=== PATIENT | male | born 1980 | race Caucasian/White ===

== ENCOUNTER 2017-11-08 18:33 | Emergency (ER) | payer SELFPAY ==
[2017-11-08 18:53] VITALS: BP 115/82
[2017-11-08] MEDS ORDERED: Cyclobenzaprine TAB* 10 MG PO ONE (19:46)
[2017-11-08] MEDS ORDERED: Ibuprofen TAB* 400 MG PO ONE (19:46)
--- NOTE | 2017-11-08 20:26 | RAD ---
INDICATION: Left lateral rib pain for days after falling off a roof COMPARISON: None. TECHNIQUE: 4 views of the left ribs were obtained. FINDINGS: There is a nondisplaced fracture at the lateral left ninth rib. There is no left-sided pneumothorax. IMPRESSION: Nondisplaced fracture of the lateral left ninth rib.
--- NOTE | 2017-11-08 21:31 | ED ---
Cecy Garcia Jade, scribed for Quinn Trejo MD on 11/08/17 at 1953 . Back Pain - HPI Summary HPI Summary: Pt is a 36 y/o male who presents to [facility] s/p fall 4 days ago. He states he fell off the roof 7-10 feet high while at work onto his left side. The fall knocked the wind out of him and caused him to be SOB at the time, but he did not black out. He denies alcohol use at the time of injury. Last night, he heard something pop in his left side while he was stretching. Pt states he cannot get comfortable laying down, and pain is rated 6/10 in intensity. He has been taking Aspirin for the pain. - History of Current Complaint Chief Complaint: UCGeneralIllness Stated Complaint: RIB INJURY Time Seen by Provider: 11/08/17 18:55 Hx Obtained From: Patient Onset/Duration: Sudden Onset, Still Present Onset/Duration: Started Days Ago - 4 days ago Back Pain Location: Is Discrete @ - Left side Severity Currently: Moderate Pain Intensity: 6 Pain Scale Used: 0-10 Numeric Associated Signs And Symptoms: Positive: Bruising - Allergies/Home Medications Allergies/Adverse Reactions: Allergies Allergy/AdvReac Type Severity Reaction Status Date / Time No Known Allergies Allergy Verified 11/08/17 18:53 Home Medications: Home Medications Ibuprofen TAB* [Advil TAB*] 1,000 mg PO Q8HR PRN 11/08/17 [History Confirmed 03/18] PMH/Surg Hx/FS Hx/Imm Hx Endocrine/Hematology History: Denies: Hx Diabetes, Hx Thyroid Disease Cardiovascular History: Denies: Hx Hypertension Respiratory History: Denies: Hx Asthma, Hx Chronic Obstructive Pulmonary Disease (COPD) GI History: Denies: Hx Ulcer Infectious Disease History: No Infectious Disease History: Denies: Hx Clostridium Difficile, Hx Hepatitis, Hx Human Immunodeficiency Virus (HIV), Hx of Known/Suspected MRSA, Hx Shingles, Hx Tuberculosis, Hx Known/ Suspected VRE, Hx Known/Suspected VRSA, History Other Infectious Disease, Traveled Outside the [place] in Last 30 Days - Family History Known Family History: Positive: Cardiac Disease - Social History Alcohol Use: Rare Substance Use Type: Reports: None Smoking Status (MU): Never Smoked Tobacco Review of Systems Negative: Fever Positive: Myalgia - Left side and back pain Positive: Bruising - Left side (ribs) All Other Systems Reviewed And Are Negative: Yes Physical Exam - Summary Physical Exam Summary: Appearance: Well appearing, no pain distress Skin: warm, dry, reflects adequate perfusion. Contusion tricep area of left arm. 3 areas of ecchymosis overlying ribs posterior to axillary line (ribs 9, 10 , and 11), tenderness in this area. Small abrasion lower midline thoracic area. Head/face: normal Eyes: EOMI, MESERET ENT: normal Neck: supple, non-tender Respiratory: CTA, breath sounds present Cardiovascular: RRR, pulses symmetrical Abdomen: non-tender, soft. No LUQ tenderness. Bowel Sounds: present Musculoskeletal: strength/ROM intact. No lumbar, midline, or thoracic muscular tenderness. Shoulder and elbow normal. Neuro: normal, sensory motor intact, A&Ox3 Triage Information Reviewed: Yes Vital Signs On Initial Exam: Initial Vitals Temp Pulse Resp BP Pulse Ox 99.3 F 64 16 115/82 100 11/08/17 18:46 11/08/17 18:46 11/08/17 18:46 11/08/17 18:46 11/08/17 18:46 Vital Signs Reviewed: Yes Diagnostics - Vital Signs Vital Signs Temp Pulse Resp BP Pulse Ox 11/08/17 18:46 99.3 F 64 16 115/82 100 - Laboratory Lab Statement: Any lab studies that have been ordered have been reviewed, and results considered in the medical decision making process. - Radiology XR Xray Interpretation: Positive (See Comments) - Nondisplaced fracture of the lateral left ninth rib. physician reviewed radiology report. Radiology Interpretation Completed By: Radiologist Back Pain Course/Dx - Course Course Of Treatment: X-ray confirms ninth rib fracture. Has areas of ecchymosis in this area. No pneumothorax or upper quadrant abdominal pain. Breathing easily. Treat symptomatically. Follow-up with occupational medicine or [facility]. - Diagnoses Differential Diagnosis/HQI/PQRI: Positive: Other - Pulmonary contusion, rib fracture, rib contusion, intra-abdominal injury, pneumothorax Provider Diagnoses: Fall from roof, Rib fracture, Rib contusion Discharge - Sign-Out/Discharge Documenting (check all that apply): Discharge/Admit/Transfer - Discharge - Discharge Plan Condition: Improved Disposition: HOME Prescriptions: Cyclobenzaprine TAB* [Flexeril 10 MG TAB*] 10 mg PO DAILY PRN #5 tab PRN Reason: muscle pain Metaxalone TAB* [Skelaxin TAB*] 800 mg PO TID PRN #12 tab PRN Reason: muscle pain Naproxen [Naproxen 500 mg tab] 500 mg PO BID PRN #12 tablet.dr PRN Reason: Pain Patient Education Materials: Rib Fracture (ED) Forms: *Work Release Referrals: [facility] [Outside] [facility]ERR[facility] [Outside] Additional Instructions: Follow-up with occupational medicine physician if your company has one. Muscle relaxers can cause drowsiness, do not work or use machinery if you have any drowsiness. Ice to the area, deep breathing exercises every half hour. Return with increased pain, shortness of breath, abdominal pain, worse or other concerns. [facility] clinic and provide follow-up to you in the next day or 2. This is for patient's without a primary care physician. - Billing Disposition and Condition Condition: IMPROVED Disposition: Home The documentation as recorded by the Cecy conner Jade accurately reflects the service I personally performed and the decisions made by me, Quinn Trejo MD.
== END 2017-11-08 20:45 | disposition home or self-care (01) ==
LOC: UCEAST 18:33
DX: S22.32XA Fracture of one rib, left side, initial encounter for closed fracture (principal); S40.022A Contusion of left upper arm, initial encounter; S20.419A Abrasion of unspecified back wall of thorax, initial encounter; W17.89XA Other fall from one level to another, initial encounter; Y93.H3 Activity, building and construction; Y92.9 Unspecified place or not applicable; Y99.0 Civilian activity done for income or pay; Z82.49 Family history of ischemic heart disease and other diseases of the circulatory system
CPT/HCPCS: 99212; A9270-GY; G0463

== ENCOUNTER 2019-04-21 14:50 | Emergency (ER) | payer SELFPAY ==
[2019-04-21 15:09] VITALS: BP 119/80
--- NOTE | 2019-04-21 16:00 | UC ---
Head Injury HPI - HPI Summary HPI Summary: Patient is a 38-year-old male presenting with complaint of possible concussion. States he was working yesterday and lifted some heavy equipment. He states while he had the equipment lifted up in his arms that slipped a little bit and hit him in the forehead right above his left eye. Patient states he did not drop the equipment and continued to work. Denies loss of consciousness. Denies nausea and vomiting. Denies blurry vision. States he went about his day normally and slept well last night. Does note that he was more tired than usual yesterday evening. States since waking up this morning he has noticed a pressure headache on the left side, "feeling of fogginess," photophobia, and fatigue. Continues to deny nausea and vomiting and changes in vision. Patient states he has not taken anything for headache. Denies blood thinners. Denies neck pain. - History Of Current Complaint Chief Complaint: UCHeadInjury Stated Complaint: POSS CONCUSSION Hx Obtained From: Patient Onset/Duration: Gradual Onset Pain Intensity: 0 - Allergies/Home Medications Allergies/Adverse Reactions: Allergies Allergy/AdvReac Type Severity Reaction Status Date / Time No Known Allergies Allergy Verified 04/21/19 15:05 PMH/Surg Hx/FS Hx/Imm Hx Previously Healthy: Yes - Surgical History Surgical History: None - Family History Known Family History: Positive: Cardiac Disease - Social History Occupation: Employed Full-time Lives: With Family Alcohol Use: Occasionally Substance Use Type: None Smoking Status (MU): Never Smoked Tobacco - Immunization History Most Recent Influenza Vaccination: 2014 Most Recent Tetanus Shot: unknown Most Recent Pneumonia Vaccination: never Review of Systems All Other Systems Reviewed And Are Negative: Yes Constitutional: Positive: Negative Skin: Positive: Negative Eyes: Positive: Photophobia. Negative: Blurred Vision, Diplopia Respiratory: Positive: Negative Cardiovascular: Positive: Negative Gastrointestinal: Positive: Negative. Negative: Vomiting, Nausea Musculoskeletal: Positive: Negative Neurological: Positive: Headache. Negative: Weakness, Paresthesia, Numbness Physical Exam Triage Information Reviewed: Yes Appearance: Well-Appearing, No Pain Distress, Well-Nourished Vital Signs: Initial Vital Signs Temp 99.5 F 04/21/19 15:06 Pulse 63 04/21/19 15:06 Resp 18 04/21/19 15:06 BP 119/80 04/21/19 15:06 Pulse Ox 100 04/21/19 15:06 Vital Signs Reviewed: Yes Eyes: Positive: Conjunctiva Clear ENT: Positive: Hearing grossly normal, Pharynx normal, TMs normal. Negative: Nasal drainage Neck exam: Normal Neck: Positive: Supple, Nontender Respiratory Exam: Normal Respiratory: Positive: Lungs clear, Normal breath sounds, No respiratory distress Cardiovascular Exam: Normal Cardiovascular: Positive: RRR Neurological Exam: Normal, Other - cranial nerves II-XII intact Neurological: Positive: Alert, Muscle Tone Normal Psychological: Positive: Age Appropriate Behavior Head Injury Course/Dx - Course Course Of Treatment: Patient VS and PE findings normal. Educated patient on minor head injuries and minor concussions. Instructed to follow up if symptoms persist or to go to ED with new or worsening symptoms. Patient voiced understanding and agreed with treatment plan. - Differential Dx/Diagnosis Provider Diagnosis: Minor head injury without loss of consciousness, Concussion Discharge ED - Sign-Out/Discharge Documenting (check all that apply): Patient Departure All imaging exams completed and their final reports reviewed: No Studies - Discharge Plan Condition: Stable Disposition: HOME Patient Education Materials: Concussion (ED) Referrals: [facility] [Outside] Additional Instructions: As discussed, you have experienced a minor head injury. It is likely you have a minor concussion. Limit TV, computers, other screen time, reading, and other activities requiring more focus. Avoid strenuous activities, including sports. You may continue to take ibuprofen or tylenol as directed for pain relief. Follow up with the [facility] or the referral listed below if symptoms do not resolve within 7 days. Go to the emergency department if you experience loss of consciousness, seizure , severe headache, weakness in arms or legs, or any changes in vision. [facility] Medicine Family [place], [place] [address] [place], [place] - Billing Disposition and Condition Condition: STABLE Disposition: Home
== END 2019-04-21 16:34 | disposition home or self-care (01) ==
LOC: UCEAST 14:50
DX: S09.90XA Unspecified injury of head, initial encounter (principal); S06.0X0A Concussion without loss of consciousness, initial encounter; W20.8XXA Other cause of strike by thrown, projected or falling object, initial encounter; Y92.9 Unspecified place or not applicable
CPT/HCPCS: 99212; G0463